=== PATIENT | female | born 1975 | race Caucasian/White ===

== ENCOUNTER → 2017-01-19 | Outpatient (CLI) | payer MEDICAID | LOC: FIMAGING 13:18 | PROVIDERS: ATTEND Nurse Practitioner | DX: R10.2 Pelvic and perineal pain (principal); N83.202 Unspecified ovarian cyst, left side; Z97.5 Presence of (intrauterine) contraceptive device ==

== ENCOUNTER → 2017-05-14 | Outpatient (CLI) | payer MEDICAID | LOC: CIMAGING 14:47 | PROVIDERS: ATTEND Nurse Practitioner | DX: N83.292 Other ovarian cyst, left side (principal) | CPT/HCPCS: 76856-PO ==